=== PATIENT | female | born 2005 | race Caucasian/White ===

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

== ENCOUNTER → 2024-09-23 13:55 | Outpatient (BNVA) | payer BC, SELFPAY | PROVIDERS: Family Provider Family Medicine; PCP Family Medicine | DX: N39.0 Urinary tract infection, site not specified (principal) | CPT/HCPCS: 81000 ==

== ENCOUNTER → 2024-10-20 11:39 | Outpatient (BNVA) | payer BC, SELFPAY | PROVIDERS: Family Provider Family Medicine; PCP Family Medicine; Visit Provider Family Medicine | DX: N39.0 Urinary tract infection, site not specified (principal); R30.0 Dysuria | CPT/HCPCS: 81000; 87077; 87086; 87184 ==

== ENCOUNTER 2025-09-23 20:19 | Inpatient (IN) | payer BC, MEDICAID, SELFPAY ==
[2025-09-23] VITALS (22 sets, daily range): BP systolic 121–153; BP diastolic 58–92; PULSE 93–137; RESP 18; TEMP 37.1; O2SAT 99; BMI 35.4
[2025-09-23 19:58] LABS: Nitrazine Paper, PH Positive
[2025-09-23 21:51] LABS: Hematocrit 30.5 % (36-47); Hemoglobin 9.90 g/dL (11.27-16.99); Mean Corpuscular HGB Conc 32.5 g/dL (30-55); Mean Corpuscular Hemoglobin 27.5 pg (27-33); Mean Corpuscular Volume 84.7 fl (85-98); Nucleated Red Blood Cells % 0 %; Platelet Count 249 10^3/cmm (157-399); Red Blood Count 3.60 10^6/uL (3.85-5.65); White Blood Count 17.31 10^3/uL (3.29-11.43)
[2025-09-23] MEDS: ROPivacaine premix 200 MG/100 ML PREMIX 13 MG EPIDURAL (22:55)
--- NOTE | 2025-09-23 23:02 | ANES.PREANE2 ---
Pre-Anesthetic Assessment Height/Weight: Height 1.65 m Weight 96.615 kg Temp Pulse Resp BP Pulse Ox O2 Del Method 98.7 F 114 H 18 142/65 99 Room Air 09/23/25 22:00 09/23/25 22:58 09/23/25 22:00 09/23/25 22:58 09/23/25 22:55 09/23/25 19:54 Preop Diagnosis: uterine epidural Familial anesthetic complications: none Was Clonidine taken within 24 hours: N/A Social No alcohol and No tobacco Exam alert, oriented x 3, clear to auscultation bilaterally and regular rate & rhythm Airway Cervical ROM: within normal limits Mallampati: Class II Dentition: full Pulmonary None reported CV/HEM None reported None reported Hepatic None reported GI None reported Metabolic None reported Musc/skel None reported Neuropsych None reported Anesthetic Plan ASA status: 2 Anesthesia: Regional (specify below) (epidural) Risk of > 500 ml blood loss (7ml/kg in children): No Medications/Allergies Home Medications ?Medication ?Instructions ?Recorded ?Confirmed ?Last Taken ?Type famotidine 10 mg tablet 10 mg PO DAILY 09/23/25 09/23/25 09/22/25 History [id number] 1 mg 1 tab PO DAILY 09/23/25 09/23/25 09/22/25 History tablet Allergies Allergy/AdvReac Type Severity Reaction Status Date / Time No Known Allergies Allergy Verified 09/23/25 21:00 Current Medications Generic Name Dose Route Start Last Admin Trade Name Freq PRN Reason Stop Dose Admin Lactated Ringer's 1,000 mls @ 999 mls/hr 09/23/25 21:35 09/23/25 22:51 Lactated Ringers IV 999 mls/hr .Q1H1M PRN Administration Per L&D Rescitation Protocol Ropivacaine 200 mg in 100 mls @ 10 mls/hr 09/23/25 22:30 09/23/25 22:55 Naropin Premix EPIDURAL 13 mls/hr .Q10H KAL Administration Misoprostol 25 mcg 09/23/25 20:15 09/23/25 20:57 Misoprostol 100 Mcg Tablet SUBLINGUAL 09/24/25 00:16 25 mcg Q4H KAL Administration [facility] Anesthesia Medical History Conjunctivitis, left eye Family History Denies family history of Clotting disorder Pulmonary embolism Social History Smoking and tobacco/nicotine status: never used tobacco/nicotine Female Reproductive History : 1 Data Anesthesia 09/23/25 21:44 Short CBC 09/23/25 Range/Units 21:44 WBC 17.31 H (3.29-11.43) 10^3/uL Hgb 9.90 L (11.27-16.99) g/dL Hct 30.5 L (36-47) % MCV 84.7 L (85-98) fl Plt Count 249 (157-399) 10^3/cmm Neut % (Auto) 80.0 % Neut # (Auto) 13.85 H (1.8-7.7) 10^3/uL Blood Bank 09/23/25 21:44 Blood Type O Positive Rho(D) Type Rh positive Antibody Screen Negative Anesthesia Procedures Epidural Time Out Performed: Yes Consents Signed: Procedure Consent Consent: from patient, risks and benefits reviewed and patient agrees to proceed Lumbar Level: L3-L4 Epidural position: sitting Epidural procedure: sterile prep of area, 1% lidocaine to numb the area, negative for paresthesia passed, neg for paresthesia, test dose given (5mL), 1.5% xylocaine 1:200k epi, 0.2% Ropivacaine bolus ml (5mL), placed PCEA, no systemic response, sterile dressing applied, L.U.D. no apparent complications and 0.2% Ropiavacaine @ mls/hr (13) Additional Comments: MARI at 5cm, pt. tolerated well
[2025-09-24] VITALS (60 sets, daily range): BP systolic 95–150; BP diastolic 55–83; PULSE 96–166; RESP 16–18; TEMP 36.6–38.4; O2SAT 98
[2025-09-24] MEDS: ROPivacaine premix 200 MG/100 ML PREMIX 13 MG EPIDURAL (03:43)
[2025-09-24] MEDS: ampicillin 2,000 MG in sodium chloride 0.9% (plus) 50 ML 100 MG IV (05:59)
[2025-09-24] MEDS: gentamicin inj 480 MG in sodium chloride 0.9% (100 ml) 100 ML 100 MG IV (06:37)
[2025-09-24] MEDS: oxytocin 30 UNIT/500 ML BAG 600 UNIT IV (07:09)
[2025-09-24] MEDS: lidocaine 2% INJ 20 mL INJECTION (07:16)
--- NOTE | 2025-09-24 08:21 | P.HPUD_ITS ---
Labor & Delivery H&P Update Date of Procedure: September 24, 2025 Date H&P Performed: 09/21/25 Changes to previous documentation: Spontaneous rupture of membranes Admission Diagnosis: 20-year-old 1 at 39 weeks and 2 days presenting with spontaneous rupture membranes Preop diagnosis: uterine Planned procedure: Spontaneous vaginal delivery Other information: The patient is a pleasant 20-year-old female at 39 weeks and 2 days presenting to the hospital spontaneous rupture membranes. Upon arrival to hospital she was noted to have grossly ruptured membranes. She was having active vaginal pooling during initial examination. As result the decision was made to admit the pa tiecarmelina, and said she was not having contractions to start her on Cytotec 25 mcg x 1. The patient has had an unremarkable . She has had consistent care. Her labs were unremarkable. Her blood type is O+. Her antibody screen was negative. She is GBS negative. She passed her glucose screen. She is rubella immune. The remainder of her profile is within normal limits. Related Problem List Diagnoses 1. 39 weeks gestation of : 2. Spontaneous rupture of membranes: A&P Assessment and plan 1. 39 weeks gestation of : I anticipate routine labor and spontaneous vaginal delivery. We will augment her labor as needed, and minimize vaginal checks given the fact that she already has ruptured membranes. Status: Acute 2. Spontaneous rupture of membranes: Status: Acute PDMP PDMP Reviewed: Not Reviewed
--- NOTE | 2025-09-24 08:26 | P.PCNOB_ITS ---
Delivery Note: Date of delivery: September 24, 2025 Pre-delivery diagnoses: 20-year-old 1 at 39 weeks and 2 days presenting with spontaneous rupture of membranes Post-delivery diagnoses: Status post spontaneous vaginal delivery Procedure: Spontaneous vaginal delivery Delivering Physician: Rusty Adame Estimated blood loss (mL): 200 Pre-Delivery Course: The patient presented to the hospital with spontaneous rupture of membranes. Cytotec 25 mcg sublingual x 1 was given. An epidural was placed. The patient was noted to have a fever for 101 and had ampicillin and gentamicin initiated. She then progressed complete without difficulty. Delivery: DELIVERY: The patient progressed to complete without difficulty. She delivered a male with a weight of 3600 g with Apgars of 8, 9. The baby was delivered from the BOB position and placed on the mother's abdomen. The cord was then clamped and cut about 1 minute after delivery. There was no nuchal cord x 2 that were reduced prior to delivery of the shoulders. There was no meconium. The placenta and 3 vessel cord were delivered intact shortly thereafter. The perineum and vaginal vault were carefully examined. She was noted to have a posterior midline second-degree tear. It was repaired with 3-0 Vicryl in usual fashion. Both the mother and the baby were in stable condition. Post-Delivery Status: Good History History History 1 Term 1 0 Miscarriages/Ectopic 0 Living Children 1 A&P Assessment and plan 1. 39 weeks gestation of : I anticipate routine care. The patient's baby is being transferred to [facility] in [place]. As such, we will be facilitating a discharge as soon as it is reasonable. 2. Spontaneous rupture of membranes: 3. Spontaneous vaginal delivery: PDMP PDMP Reviewed: Not Reviewed Coding Level of Care Code Acute Code for Chg Fwd Diagnoses 39 weeks gestation of Z3A.39 Spontaneous rupture of membranes Spontaneous vaginal delivery O80
--- NOTE | 2025-09-24 08:31 | P.DS_ITS ---
Discharge Providers INFORMATION SYSTEMS SECURITY DEVELOPER Date of Admission: 09/23/25 20:19 Date of Discharge: 09/24/25 Attending Provider at Admission: Rusty Adame MD Attending Provider at Discharge: Rusty Adame MD Primary Care Provider: Rusty Adame MD Diagnoses at Discharge Discharge Diagnosis 1. 39 weeks gestation of : 2. Spontaneous rupture of membranes: 3. Spontaneous vaginal delivery: Reason for Visit Reason for Visit: ?[facility] Hospital Course Hospital Course The patient presented to the hospital with spontaneous rupture membranes. She was given Cytotec 25 mcg x 1 sublingually. An epidural was placed. The patient spiked a fever. Ampicillin and gentamicin were initiated. She progressed to complete and had an unremarkable delivery of a healthy appearing male infant. He was noted to have an imperforate anus and transfer was scheduled to [facility] in [place]. Her bleeding has been within normal limits. Her pain has been well-controlled. There have been no concerns. Her discharge has been facilitated as a result of her desire to be in [place] with her . Physical Exam Narrative: The patient is alert. She appears comfortable. Her heart has a regular rate and rhythm with no murmurs appreciated. Lungs are clear to auscultation bilaterally. Her fundus is firm and below the umbilicus. Urinary Catheter Management: Rhodes Latex Free: Cath Placed During This Visit: yes Reason for Continuing Indwelling Catheter: Other Urinary Catheter Date of Insertion: 09/23/25 Urinary Catheter Time of Insertion: 23:35 History History History 1 Term 1 0 Miscarriages/Ectopic 0 Living Children 1 Discharge Data Studies Completed and Pending Pending at discharge Category Date Time Status Retype for Patiets ABO/Rh Routine Lab 09/23/25 22:24 Ordered Laboratory Results WBC 17.31 10^3/uL (3.29-11.43) H 09/23/25 21:44 RBC 3.60 10^6/uL (3.85-5.65) L 09/23/25 21:44 Hgb 9.90 g/dL (11.27-16.99) L 09/23/25 21:44 Hct 30.5 % (36-47) L 09/23/25 21:44 MCV 84.7 fl (85-98) L 09/23/25 21:44 MCH 27.5 pg (27-33) 09/23/25 21:44 MCHC 32.5 g/dL (30-55) 09/23/25 21:44 RDW 16.4 % (12.1-15.1) H 09/23/25 21:44 Plt Count 249 10^3/cmm (157-399) 09/23/25 21:44 MPV 10.7 fL (7.4-10.4) H 09/23/25 21:44 Neut % (Auto) 80.0 % 09/23/25 21:44 Lymph % (Auto) 11.8 % 09/23/25 21:44 [place] % (Auto) 5.8 % 09/23/25 21:44 Eos % (Auto) 0.8 % 09/23/25 21:44 Baso % (Auto) 0.2 % 09/23/25 21:44 Neut # (Auto) 13.85 10^3/uL (1.8-7.7) H 09/23/25 21:44 Lymph # (Auto) 2.0 10^3/uL (0.8-4.8) 09/23/25 21:44 [place] # (Auto) 1.0 10^3/uL (0.2-0.9) H 09/23/25 21:44 Eos # (Auto) 0.1 10^3/uL (0.0-0.8) 09/23/25 21:44 Baso # (Auto) 0.0 10^3/uL (0.0-0.1) 09/23/25 21:44 Nucleated RBC % (auto) 0 % 09/23/25 21:44 Nucleated RBCs # 0.0 /100WBC 09/23/25 21:44 Fluid pH (paper) Positive H 09/23/25 19:38 Blood Type O Positive 09/23/25 21:44 Rho(D) Type Rh positive 09/23/25 21:44 Antibody Screen Negative 09/23/25 21:44 Vitals Last Vital Signs Temp 100.3 F H 09/24/25 06:02 Pulse 123 H 09/24/25 08:22 Resp 18 09/23/25 22:00 BP 133/81 09/24/25 08:22 Pulse Ox 99 09/23/25 22:55 O2 Del Method Room Air 09/23/25 19:54 Results Labs OB ([facility]): Blood Type O Positive 09/23/25 Antibody Screen Negative 09/23/25 Hct, (36-47) 30.5 % L 09/23/25 Hgb, (11.27-16.99) 9.90 g/dL L 09/23/25 Rho(D) Type Rh positive 09/23/25 Plt Count, (157-399) 249 10^3/cmm 09/23/25 Micro Urine Specimen 10/20/24 Discharge Plan Discharge Patient Disposition: Home Condition: Stable Prescriptions: New ibuprofen 800 mg tablet 800 mg PO Q8H Qty: 45 0RF Continued 1 mg Tablet 1 tab PO DAILY Discontinued famotidine 10 mg Tablet 10 mg PO DAILY Referrals: Rusty Adame MD [Primary Care Provider, [facility]] - 6 Weeks Discharge Diet: Usual diet Discharge Activity: Limit activity as instructed Patient Instructions: Opioid Safety, Patient Portal & [place] Instructions Discharge Attestations INFORMATION SYSTEMS SECURITY DEVELOPER Time Spent in Discharge Care*: less than 30 min Coding Level of Care Code Acute Code for Chg Fwd Diagnoses 39 weeks gestation of Z3A.39 Spontaneous rupture of membranes Spontaneous vaginal delivery O80
[2025-09-24] MEDS: benzocaine-menthol 78 gm Canister 1 SPRAY TOPICAL (12:36)
--- NOTE | 2025-09-24 13:32 | ANE.PACU2 ---
Inpatient post-anesthesia follow up: Airway intact: Yes Vital signs: Temperature 98.4 F Pulse Rate 112 Respiratory Rate 16 Blood Pressure 138/73 Pulse Oximetry 99 Oxygen Delivery Me thod Room Air Oxygen Flow Rate Fraction of Inspir ed Oxygen Hydration adequate: Yes Nausea and vomiting: No Pain level: 1 Mental status: Baseline Epidural Start/End: Epidural Start Date: 09/23/25 Epidural Start Time: 22:41 Epidural End Date: 09/24/25 Epidural End Time: 10:22
[2025-09-24 16:13] LABS: Hematocrit 26.9 % (36-47); Hemoglobin 8.80 g/dL (11.27-16.99); Mean Corpuscular HGB Conc 32.7 g/dL (30-55); Mean Corpuscular Hemoglobin 27.9 pg (27-33); Mean Corpuscular Volume 85.4 fl (85-98); Platelet Count 220 10^3/cmm (157-399); Red Blood Count 3.15 10^6/uL (3.85-5.65); White Blood Count 27.15 10^3/uL (3.29-11.43)
[2025-09-24 17:49] LABS: High Risk PP Hemorrhage BBK Notified
== END 2025-09-24 16:59 | disposition home or self-care (01) | DRG 560 ==
LOC: OPOB 20:19 → OBGYN 20:19
PROVIDERS: Admitting Provider Family Medicine; PCP Family Medicine; Visit Provider Family Medicine
DX: O69.81X0 Labor and delivery complicated by cord around neck, without compression, not applicable or unspecified (principal); O70.1 Second degree perineal laceration during delivery; Z3A.39 39 weeks gestation of pregnancy; Z37.0 Single live birth
CPT/HCPCS: 36415; 51702; 59025; 59409; 83986; 85025; 85027; 86850; 86900; 99211; J0290; J1580; J2590; J2795; J7120; J7121; J9999